=== PATIENT | female | born 1965 | race Caucasian/White ===

== ENCOUNTER 2018-08-07 19:03 | Emergency (ER) | payer SELFPAY ==
--- NOTE | 2018-08-07 20:26 | ER Document Report ---
ED Respiratory Problem - General Chief Complaint: Shortness Of Breath Stated Complaint: SHORTNESS OF BREATH Time Seen by Provider: 08/07/18 19:54 Notes: Patient is a 52-year-old female with a past medical history of CHF and who is a former smoker that comes to the emergency department for chief complaint of cough, shortness of breath, tightness across the front of her chest. She states that she started out coughing earlier today with whitish sputum production, she states she coughed up a few flecks of blood throughout the day. She states she has had wheezing. She denies fever. She states she has had weight gain of 8 pounds since yesterday as well. She states she is compliant with her Lasix 20 mg twice a day. She denies history of ND. She states she was recently diagnosed with type 2 diabetes, on insulin. TRAVEL OUTSIDE OF THE [place] IN LAST 30 DAYS: No - Related Data Allergies/Adverse Reactions: No Known Allergies Allergy (Unverified 08/07/18 19:16) Past Medical History - General Information source: Patient - Social History Smoking Status: Current Every Day Smoker Frequency of alcohol use: None Drug Abuse: None Lives with: Family Family History: Reviewed & Not Pertinent Patient has suicidal ideation: No Patient has homicidal ideation: No - Past Medical History Cardiac Medical History: Reports: Hx Congestive Heart Failure Renal/ Medical History: Denies: Hx Peritoneal Dialysis Past Surgical History: Reports: Hx Appendectomy, Hx Cholecystectomy, Hx Genitourinary Surgery - ovarian cyst removal Review of Systems - Review of Systems Constitutional: No symptoms reported EENT: No symptoms reported Cardiovascular: See HPI Respiratory: See HPI Gastrointestinal: No symptoms reported Genitourinary: No symptoms reported Female Genitourinary: No symptoms reported Musculoskeletal: No symptoms reported Skin: No symptoms reported Hematologic/Lymphatic: No symptoms reported Neurological/Psychological: No symptoms reported Physical Exam - Vital signs Vitals: Temp Pulse Resp BP Pulse Ox 98.6 F 93 20 141/77 H 97 08/07/18 19:17 08/07/18 19:17 08/07/18 19:17 08/07/18 19:17 08/07/18 19:17 - Notes Notes: GENERAL: Alert, interacts well. No acute distress. HEAD: Normocephalic, atraumatic. EYES: Pupils equal, round, and reactive to light. Extraocular movements intact. ENT: Oral mucosa moist, tongue midline. Oropharynx unremarkable. Airway patent. Nares patent, no nasal septal hematoma, TM's intact. NECK: Full range of motion. Supple. Trachea midline. LUNGS: Expiratory wheezes heard mainly in the upper lung arzola, lungs clear otherwise, no rales or rhonchi heard. No tachypnea or signs of distress. HEART: Regular rate and rhythm. No murmur ABDOMEN: Soft, non-tender. Non-distended. Bowel sounds present in all 4 quadrants. GENITOURINARY: Deferred EXTREMITIES: Moves all 4 extremities spontaneously. No edema, normal radial and dorsalis pedis pulses bilaterally. No cyanosis. BACK: no cervical, thoracic, lumbar midline tenderness. No saddle anesthesia, normal distal neurovascular exam. NEUROLOGICAL: Alert and oriented x3. Normal speech. [cranial nerves II through XII grossly intact]. PSYCH: Normal affect, normal mood. SKIN: Warm, dry, normal turgor. No rashes or lesions noted. Course - Re-evaluation Re-evalutation: Patient with expiratory wheezes on auscultation, no respiratory distress, no tachypnea. She is smiling, talkative, well-appearing. No noted lower extremity edema. Patient 98% on room air, no tachycardia or hypotension. No fever. EKG sinus rhythm at a rate of 81, left bundle branch block present, QTC is 506, ID [id number]. This was repeated with no significant change. No previous EKG here, patient states that she usually goes to different hospitals. Patient cannot tell me if this is an old bundle branch block. She states she was most recently admitted to [facility]. I did obtain the records, she was admitted in May of last year, this shows the same left bundle branch block. Chest x-ray is unremarkable with no consolidation or vascular congestion noted. CBC unremarkable. Chemistry unremarkable. Troponin is negative. BNP is 1000. Patient reevaluated, still has some wheezing, given Solu-Medrol, magnesium, additional treatment. After this symptoms resolved. Patient asymptomatic on reevaluation. Second troponin cycled and is negative. I did discuss the patient with Dr. Brady. Patient's presentation is consistent with bronchitis /upper respiratory infection, patient states she intermittently gets this and responds very well to steroids. She states she is used to taking her insulin to adjust for this. Patient states she will follow-up with primary care. She was given a small dose of Lasix before she left because her BNP is higher than previously although I do not see evidence of fluid overload including with her borderline normal blood pressures. I discussed follow-up and return precautions in detail. Patient states understanding and agreement with plan. - Vital Signs Vital signs: Temp Pulse Resp BP Pulse Ox 98.6 F 93 14 134/94 H 96 08/07/18 19:17 08/07/18 19:17 08/08/18 00:02 08/08/18 00:02 08/08/18 00:02 - Laboratory Result Diagrams: 08/07/18 20:31 08/07/18 20:31 Laboratory results interpreted by me: 08/07/18 08/07/18 08/07/18 20:31 20:31 20:31 WBC 11.1 H RDW 15.0 H Glucose 115 H NT-Pro-B Natriuret Pep 1030 H Discharge - Discharge Clinical Impression: Shortness of breath, Wheezing, Cough Condition: Stable Disposition: HOME, SELF-CARE Additional Instructions: Your workup at this point is reassuring. Your chest x-ray does not show any fluid or pneumonia. Take the prednisone as prescribed for the shortness of breath/wheezing, adjust your insulin doses to counteract the elevated blood sugars. Follow-up closely with primary care. Return if you worsen including difficulty breathing, fever, chest pain, vomiting, or any other concerning or worsening symptoms. Prescriptions: Prednisone [Deltasone 20 mg Tablet] 3 tab PO DAILY 5 Days #15 tablet
--- NOTE | 2018-08-07 20:35 | RADIOLOGY REPORT (SQ) ---
EXAM DESCRIPTION: CHEST 2 VIEWS COMPLETED DATE/TIME: 08/07/2018 8:12 pm REASON FOR STUDY: cough COMPARISON: [facility] from May 2018. TECHNIQUE: Frontal and lateral radiographic views of the chest acquired. NUMBER OF VIEWS: Two view. LIMITATIONS: None. FINDINGS: LUNGS AND PLEURA: Faint nodule in the right middle lobe, subcentimeter and stable. Slight interstitial prominence in the lungs, also stable. No developing or acute pathology. MEDIASTINUM AND HILAR STRUCTURES: No masses or contour abnormalities. HEART AND VASCULAR STRUCTURES: Heart normal size. No evidence for failure. BONES: No acute findings. HARDWARE: None in the chest. OTHER: No other significant finding. IMPRESSION: Stable chest. No acute or suspicious findings. TECHNICAL DOCUMENTATION: JOB ID: [id number] [employer]- All Rights Reserved Reading location - IP/workstation name: [email or web address]
[2018-08-07 20:43] LABS: ABSOLUTE BASOPHILS # (AUTO) 0.1 10^3/uL (0.0-0.2); ABSOLUTE EOSINOPHILS # (AUTO) 0.1 10^3/uL (0.0-0.6); ABSOLUTE LYMPHOCYTES (AUTO) 4.1 10^3/uL (0.5-4.7); ABSOLUTE MONOCYTES (AUTO) 0.6 10^3/uL (0.1-1.4); ABSOLUTE NEUT (AUTO) 6.3 10^3/uL (1.7-8.2); BASOPHILS % (AUTO) 0.9 % (0-2); EOSINOPHILS % (AUTO) 0.9 % (0-6); HEMATOCRIT 45.2 % (36.0-47.0); HEMOGLOBIN 15.1 g/dL (12.0-15.5); LYMPHOCYTES % (AUTO) 36.7 % (13-45); MEAN CORPUSCULAR HEMOGLOBIN 29.4 pg (27.0-33.4); MEAN CORPUSCULAR HGB CONC 33.4 g/dL (32.0-36.0); MEAN CORPUSCULAR VOLUME 88 fl (80-97); MONOCYTES % (AUTO) 5.3 % (3-13); PLATELET COUNT 276 10^3/uL (150-450); RED BLOOD COUNT 5.13 10^6/uL (3.72-5.28); SEGMENTED NEUTROPHILS % (AUTO) 56.2 % (42-78); TOTAL CELLS COUNTED % (AUTO) 100 %; WHITE BLOOD COUNT 11.1 10^3/uL (4.0-10.5)
[2018-08-07 20:58] LABS: ALANINE AMINOTRANSFERASE 20 U/L (9-52); ALBUMIN 4.2 g/dL (3.5-5.0); ALKALINE PHOSPHATASE 87 U/L (38-126); ANION GAP 8 (5-19); ASPARTATE AMINO TRANSFERASE 33 U/L (14-36); BILIRUBIN,DIRECT 0.4 mg/dL (0.0-0.4); BILIRUBIN,TOTAL 0.5 mg/dL (0.2-1.3); BLOOD UREA NITROGEN 13 mg/dL (7-20); CALCIUM 9.4 mg/dL (8.4-10.2); CARBON DIOXIDE 26 mmol/L (22-30); CHLORIDE 106 mmol/L (98-107); CREATINE KINASE 34 U/L (30-135); GLUCOSE 115 mg/dL (75-110); POTASSIUM 4.4 mmol/L (3.6-5.0); SODIUM 139.8 mmol/L (137-145); TOTAL PROTEIN 7.5 g/dL (6.3-8.2)
[2018-08-07 21:08] LABS: NT PRO BNP 1030 pg/mL (5-900)
[2018-08-07 21:09] LABS: CREATINE KINASE MB < 0.22 ng/mL (<4.55); TROPONIN I < 0.012 ng/mL
[2018-08-07] MEDS ORDERED: IPRATROPIUM/ALBUTEROL 0.5-2.5 MG/3 ML AMPUL NEB ONE ×2 (21:16→22:14)
--- NOTE | 2018-08-07 22:12 | EKG REPORT ---
SEVERITY:- ABNORMAL ECG - SINUS RHYTHM LEFT BUNDLE BRANCH BLOCK : Confirmed by: Swetha Solano MD 07-Aug-2018 22:11:48
[2018-08-07] MEDS ORDERED: METHYLPREDNISOLONE INJ 125 MG/2 ML SDV IV ONE (22:14)
[2018-08-07] MEDS ORDERED: MAGNESIUM SULFATE/D5W 1 GM/100 ML RTUPB IV ONE (22:15)
[2018-08-08] MEDS ORDERED: FUROSEMIDE INJ/PF 20 MG/2 ML SDV IV ONE (00:50)
[2018-08-08 01:06] VITALS: BP 135/79
--- NOTE | 2018-08-08 12:55 | EKG REPORT ---
SEVERITY:- ABNORMAL ECG - SINUS RHYTHM LEFT BUNDLE BRANCH BLOCK : Confirmed by: Allen John MD 08-Aug-2018 12:55:39
== END 2018-08-08 01:06 | disposition home or self-care (01) ==
LOC: EEVIPCON 19:03 → ER 19:03
DX: I50.9 Heart failure, unspecified (principal); Z79.899 Other long term (current) drug therapy; I44.7 Left bundle-branch block, unspecified; R06.02 Shortness of breath; R04.2 Hemoptysis; R07.89 Other chest pain; R06.2 Wheezing; R63.5 Abnormal weight gain; E11.9 Type 2 diabetes mellitus without complications
CPT/HCPCS: 93005; 94640 ×2; 99285; 96375; 96365; 36415; 82553; 82550; 85025; 80053; 84484; 83880; 71046; 93010; J1940; J2930; J3475; J7620